=== PATIENT | male | born 1950 | race Two or more races ===

== ENCOUNTER 2021-08-19 21:10 | Emergency (ER) | payer BC, MEDICARE ==
[~2021-08-19] VITALS: Ht 175.3 cm; Wt 79.5 kg
== END 2021-08-20 00:03 | disposition home or self-care (01) ==
LOC: ER 21:12
DX: T18.9XXA Foreign body of alimentary tract, part unspecified, initial encounter (principal); X58.XXXA Exposure to other specified factors, initial encounter; Y93.89 Activity, other specified; Y92.89 Other specified places as the place of occurrence of the external cause; Y99.8 Other external cause status
CPT/HCPCS: 74018; 99283

== ENCOUNTER 2023-07-31 09:27 | Inpatient (IN) | payer OTHER, BC ==
[2023-07-24 17:02] LABS: BASOPHILS % (AUTO) 0.6 % (0-1); EOSINOPHILS % (AUTO) 0.8 % (0-6); LYMPHOCYTES # (AUTO) 1.9 X10'3 (1.1-4.8); LYMPHOCYTES % (AUTO) 34.3 % (21-51); MEAN CORPUSCULAR HEMOGLOBIN 31.8 PG (27.0-31.0); MEAN CORPUSCULAR HGB CONC 34.4 g/dL (33.0-36.5); MEAN CORPUSCULAR VOLUME 92.5 FL (78-98); MEAN PLATELET VOLUME 7.4 FL (7.4-10.4); MONOCYTES # (AUTO) 0.6 X10'3 (0-0.9); MONOCYTES % (AUTO) 10.4 % (2-12); NEUTROPHILS # (AUTO) 2.9 X10'3 (1.8-7.7); NEUTROPHILS % (AUTO) 53.9 % (42-75); PRE OP HEMATOCRIT 45.9 % (42.0-52.0); PRE OP HEMOGLOBIN 15.8 g/dL (14.0-17.9); PRE OP PLATELET COUNT 207 X10'3 (140-440); PRE OP WHITE BLOOD COUNT 5.4 10'3 (4.8-10.8); RED BLOOD COUNT 4.96 X10'6 (4.70-6.10); RED CELL DISTRIBUTION WIDTH 12.7 % (11.5-14.5)
[2023-07-24 17:17] LABS: ALBUMIN 3.8 G/DL (3.4-5.0); ALBUMIN/GLOBULIN RATIO 1.1 (1.1-1.5); ALKALINE PHOSPHATASE 89 IU/L (46-116); BLOOD UREA NITROGEN 21 MG/DL (7-18); BUN/CREATININE RATIO 21.2 (10.0-20.0); CALCIUM 8.8 MG/DL (8.5-10.1); CHLORIDE 104 MMOL/L (99-107); CREATININE 0.99 MG/DL (0.60-1.10); PRE OP ALT 33 U/L (30-65); PRE OP ANION GAP 6 (8-16); PRE OP AST 31 U/L (10-37); PRE OP BILIRUB, TOTAL 0.5 MG/DL (0.0-1.0); PRE OP GLUCOSE 94 MG/DL (70-104); PRE OP POTASSIUM 4.2 MMOL/L (3.4-5.1); PRE OP SODIUM 139 MMOL/L (135-145); TOTAL CARBON DIOXIDE 28.6 MMOL/L (24-32); TOTAL PROTEIN 7.4 G/DL (6.4-8.2); eGFR 75 ML/MIN
[2023-07-31] VITALS (27 sets, daily range): BP systolic 85–132; BP diastolic 49–77; PULSE 60–70; RESP 12–17; TEMP 96.7–97.7; O2SAT 93–100
[~2023-07-31] VITALS: Ht 175.3 cm; Wt 78.0 kg
[2023-07-31] MEDS: ringers solution, lacted 1,000 ML IV SCH ×2 (05:00→22:41)
[~2023-07-31 09:27] MED LIST: CHOL200012 PO; HYDROcodone/acetaminophen 10/325mg tab PO PRN; HYDROmorphone 1 mg/ml syringe IV PRN; HYDROmorphone inj. 0.5 MG/0.5 ML DISP.SYRIN IV PRN; OMEG-133 PO; OMEP20CA16 PO; acetaminophen 325mg tablet PO ONE; acetaminophen 325mg tablet PO PRN; bisacodyl 10mg suppository rectal RC PRN; cefazolin 2gm/D5W 100mL 100 ML IV ONE; celeCOXIB 100mg capsule PO ONE; diphenhydrAMINE 25mg capsule PO PRN; famotidine 20mg tablet PO ONE; gabapentin 300mg capsule PO ONE; magnesium hydroxide 30ml (MOM) UD suspension PO PRN; metoclopramide 5 mg/ml inj IV ONE; naloxone 0.4 mg/ml inj IV PRN; non-formulary drug (Omeprazole 1 CAP) PO SCH; ondansetron/PF 4mg/2ml inj IV PRN; oxyCODONE SR 10mg (sust. release) tab PO ONE; tranexamic acid inj. 1,000 MG in normal saline IV soln 100ML IV ONE; vancomycin 1,500 MG in NS 300ml IV soln IV ONE
[2023-07-31] MEDS: cefazolin 2gm/D5W 100mL 100 ML IV SCH (10:50)
[2023-07-31] MEDS ORDERED: morphine 4 MG/ML inj SYRINge IV PRN (11:45)
[2023-07-31] MEDS ORDERED: meperidine/PF 25mg/ml syringe IV PRN ×3 (11:45)
[2023-07-31] MEDS ORDERED: ondansetron/PF 4mg/2ml inj IV PRN (11:45)
[2023-07-31] MEDS ORDERED: enalaprilat dihydrate 2.5mg/2ml vial IV PRN (11:45)
[2023-07-31] MEDS ORDERED: morphine 2 MG/ML inj. syringe IV PRN (11:45)
[2023-07-31] MEDS ORDERED: proCHLORperazine 10 MG/2 ml inj IV PRN (11:45)
[2023-07-31] MEDS ORDERED: ringers solution, lacted 1,000 ML IV SCH (11:45)
[2023-07-31] MEDS ORDERED: labetalol 20mg/4ml (5mg/ml) syringe IV PRN (11:45)
[2023-07-31] MEDS ORDERED: epiNEPHrine 1 mg/ml inj ONE (13:00)
[2023-07-31] MEDS ORDERED: cloNIDine hcl/PF 100mcg/ml inj ONE (13:00)
[2023-07-31] MEDS ORDERED: ketorolac trometh. 30mg/ml inj. ONE (13:00)
[2023-07-31] MEDS ORDERED: vancomycin 1,000mg inj ONE (13:01)
[2023-07-31] MEDS ORDERED: ROPIVAcaine 0.5% (5mg/ml) 30ml vial ONE ×2 (13:01→15:02)
[2023-07-31] MEDS ORDERED: BUPIVACAINE/MELOXICAM 14 ML VIAL IL ONE ×2 (13:01→14:36)
[2023-07-31] MEDS ORDERED: fentaNYL/PF 50MCG/1 ML 2ML syringe ONE (13:30)
[2023-07-31] MEDS ORDERED: MIDAZolam 1 MG/ML 5ML VIAL ONE (13:30)
[2023-07-31] MEDS ORDERED: ROPIVAcaine 0.5% (5mg/ml) 30ml vial IJ ONE (14:36)
[2023-07-31] MEDS ORDERED: cloNIDine hcl/PF 100mcg/ml inj EP ONE (14:37)
[2023-07-31] MEDS ORDERED: ketorolac trometh. 30mg/ml inj. IV ONE (14:38)
[2023-07-31] MEDS ORDERED: epiNEPHrine 1 mg/ml inj SQ ONE (14:39)
[2023-07-31] MEDS ORDERED: ROPIVAcaine 0.2%/PF PUMP/bolus 545 ML ADDCANAL SCH (14:55)
[2023-07-31] MEDS ORDERED: ROPIVAcaine 0.2% (10 MG/5 ML) BOLUS INJECTION ADDCANAL PRN (14:55)
[2023-07-31] MEDS ORDERED: BUPIVAcaine/PF 7.5mg/ml (0.75%) 10ml vial ONE (15:03)
[2023-07-31] MEDS ORDERED: tranexamic acid inj. 800 MG in normal saline 100ml IV soln 92 ML IV ONE (17:00)
[2023-07-31] MEDS: potassium cl 20mEq in 1/2 NS 1,000 ML IV SCH ×3 (17:44→23:05)
[2023-07-31] MEDS ORDERED: VANCOMYCIN 1,500MG inj. 1,500 MG in normal saline 500ml IV soln 300 ML IV SCH (20:00)
[2023-07-31] MEDS ORDERED: sennosides 8.6mg tablet PO SCH (21:00)
[2023-07-31] MEDS: gabapentin 300mg capsule PO SCH (22:39)
[2023-07-31] MEDS: ascorbic acid 500mg tablet PO SCH (22:43)
[2023-08-01] MEDS: cefazolin 2gm/D5W 100mL 100 ML IV SCH (02:11)
[2023-08-01] MEDS: potassium cl 20mEq in 1/2 NS 1,000 ML IV SCH (02:15)
[2023-08-01 06:00] VITALS: BP 112/65; PULSE 68; RESP 17; TEMP 97.8; O2SAT 95
[2023-08-01 07:01] LABS: BASOPHILS % (AUTO) 0.1 % (0-1); EOSINOPHILS % (AUTO) 0 % (0-6); HEMATOCRIT 40.3 % (42.0-52.0); HEMOGLOBIN 13.7 g/dl (14.0-17.9); LYMPHOCYTES # (AUTO) 0.6 X10'3 (1.1-4.8); LYMPHOCYTES % (AUTO) 5.1 % (21-51); MEAN CORPUSCULAR HEMOGLOBIN 31.4 PG (27.0-31.0); MEAN CORPUSCULAR VOLUME 92.4 FL (78-98); MEAN PLATELET VOLUME 7.5 FL (7.4-10.4); MONOCYTES # (AUTO) 0.3 X10'3 (0-0.9); MONOCYTES % (AUTO) 2.3 % (2-12); NEUTROPHILS # (AUTO) 10.6 X10'3 (1.8-7.7); NEUTROPHILS % (AUTO) 92.5 % (42-75); PLATELET COUNT 180 X10'3 (140-440); RED BLOOD COUNT 4.36 X10'6 (4.70-6.10); RED CELL DISTRIBUTION WIDTH 12.3 % (11.5-14.5); WHITE BLOOD COUNT 11.4 X10'3 (4.5-11.0)
[2023-08-01 07:30] LABS: ANION GAP 9 (8-16); CHLORIDE 102 MMOL/L (99-107); POTASSIUM 4.5 MMOL/L (3.5-5.1); SODIUM 134 MMOL/L (135-145); TOTAL CARBON DIOXIDE 22.6 MMOL/L (24-32)
[2023-08-01] MEDS ORDERED: pantoprazole 40mg Tablet.DR PO SCH (07:30)
[2023-08-01] MEDS ORDERED: multivitamins, therapeutics tablet PO SCH (08:00)
[2023-08-01] MEDS: gabapentin 300mg capsule PO SCH (08:14)
[2023-08-01] MEDS: ascorbic acid 500mg tablet PO SCH (08:15)
[2023-08-01] MEDS ORDERED: aspirin 325mg tablet PO SCH (08:30)
[2023-08-01 10:00] VITALS: BP 116/57; PULSE 67; RESP 17; TEMP 97.3; O2SAT 98
[2023-08-01] MEDS ORDERED: celeCOXIB 100mg capsule PO SCH (20:00)
== END 2023-08-01 13:55 | disposition home or self-care (01) | DRG 470 ==
LOC: PAS 09:27 → ORTHO 4S 09:56
PROVIDERS: ADMIT Orthopaedic Surgery; ATTEND Orthopaedic Surgery
PROC: 3E0T3BZ Introduction of Anesthetic Agent into Peripheral Nerves and Plexi, Percutaneous Approach (ICD-10-PCS; 2023-07-31)
PROC: 3E0T33Z Introduction of Anti-inflammatory into Peripheral Nerves and Plexi, Percutaneous Approach (ICD-10-PCS; 2023-07-31)
PROC: 0SRC0J9 Replacement of Right Knee Joint with Synthetic Substitute, Cemented, Open Approach (ICD-10-PCS; principal; 2023-07-31 13:20)
DX: M17.11 Unilateral primary osteoarthritis, right knee (principal); M21.161 Varus deformity, not elsewhere classified, right knee
CPT/HCPCS: 36415; 73560; 80051; 80053; 82948; 85025; 86885; 86900; 86901; 87081; 97116; 97161; 97530; A4215; A7000; C1713; C1776; G0378; J0171; J0690; J0735; J1170; J1885; J2250; J2405; J2765; J2795; J3010; J3370; J3480; J3490; J7040; J7120